=== PATIENT | female | born 1935 | race American Indian/Alaskan Native ===

== ENCOUNTER 2022-01-07 15:11 | Emergency (ER) | payer MEDICARE, OTHER ==
[2022-01-07] MEDS ORDERED: IPRATROPIUM 0.02% NEBU 2.5 ML IH ONE (16:29)
[2022-01-07] MEDS ORDERED: ALBUTEROL 2.5 MG/3 ML NEBU IH ONE (16:29)
[2022-01-07] MEDS ORDERED: predniSONE 20 MG TAB PO ONE (16:29)
--- NOTE | 2022-01-07 16:33 | Emergency Department Report ---
ED Shortness of Breath HPI - General Chief Complaint: Dyspnea/Respdistress Stated Complaint: DERRELL Time Seen by Provider: 01/07/22 16:26 Source: EMS Mode of arrival: Stretcher Limitations: No Limitations - History of Present Illness Initial Comments: Chief complaint: Difficulty breathing HPI: This is an 86-year-old female with a history of reactive airway disease and hypertension who presents with shortness of breath and wheezing. Patient was evaluated at urgent care clinic. EMS was called to the clinic for evaluation and treatment. Patient had shortness of breath and wheezing according to ore storage drier. She was breathing 30 breaths/min. She was treated with albuterol and Atrovent. Patient has used prednisone in the past for wheezing. She has had wheezing in the past. She was not officially diagnosed with asthma. Her primary care physician is located in [facility]. She is currently staying with her daughter here in [place]. Complaint: shortness of breath, "asthma attack" -: Gradual, days(s) (Symptoms occurred yesterday worsened this afternoon) Severity: moderate Consistency: other (Improving) Improves With: bronchodilators Worsens With: exertion Known History Of: asthma (History of wheezing) Associated Symptoms: denies other symptoms - Related Data Previous Rx's Medication Instructions Recorded Last Taken Type predniSONE [Deltasone] 2 tab PO QDAY 3 Days #6 tab 01/07/22 Unknown Rx Allergies Allergy/AdvReac Type Severity Reaction Status Date / Time No Known Allergies Allergy Verified 01/07/22 15:20 ED Review of Systems ROS: Stated complaint: DERRELL Other details as noted in HPI Comment: All other systems reviewed and negative Constitutional: denies: chills, fever, malaise Respiratory: shortness of breath, wheezing. denies: cough Cardiovascular: denies: chest pain Gastrointestinal: denies: abdominal pain, nausea, vomiting Skin: denies: rash, lesions ED Past Medical Hx - Past Medical History Previous Medical History?: Yes Hx Hypertension: Yes Hx Asthma: Yes (History of wheezing) - Surgical History Past Surgical History?: No - Family History Family history: other (Noncontributory to this presentation) - Social History Smoking Status: Never Smoker Substance Use Type: None - Medications Home Medications: Home Medications Medication Instructions Recorded Confirmed Last Taken Type predniSONE [Deltasone] 2 tab PO QDAY 3 Days #6 tab 01/07/22 Unknown Rx ED Physical Exam - General Limitations: No Limitations General appearance: alert, in no apparent distress - Head Head exam: Present: atraumatic, normocephalic - Eye Eye exam: Present: normal appearance - ENT ENT exam: Present: mucous membranes moist - Neck Neck exam: Present: normal inspection, full ROM - Respiratory Respiratory exam: Present: respiratory distress, wheezes, prolonged expiratory, other (Expiratory wheezing). Absent: rales, rhonchi, accessory muscle use - Cardiovascular Cardiovascular Exam: Present: regular rate, normal rhythm, normal heart sounds. Absent: systolic murmur, diastolic murmur, rubs, gallop - GI/Abdominal GI/Abdominal exam: Present: soft, normal bowel sounds. Absent: distended, tenderness, guarding, rebound - Extremities Exam Extremities exam: Present: normal inspection - Neurological Exam Neurological exam: Present: alert, oriented X3 - Psychiatric Psychiatric exam: Present: normal affect, normal mood - Skin Skin exam: Present: warm, dry, intact, normal color. Absent: rash ED Course Vital Signs 01/07/22 01/07/22 15:17 17:16 Temperature 98.7 F Pulse Rate 99 H Pulse Rate [ 91 H Bilateral] Respiratory 16 Rate Respiratory 24 Rate [Bilateral ] Blood Pressure 177/90 [Right] O2 Sat by Pulse 98 Oximetry ED Medical Decision Making - Radiology Data Radiology results: report reviewed Patient Name: PHIL STORY Gender: Female Date of : 1935 Home Phone: Referring Provider: NHI ELIZONDO Organization: [facility] Accession Number: [id number] Requested Date: January 07, 2022 16:33 Report Status: Final Requested Procedure: 1 Procedure Description: XR chest 1V ap Modality: XR Findings Reporting MD: Aly Rahman Dictation Time: January 07, 2022 15:54 Group Program Manager: Not available Electronic Engineering Technician Date: CHEST 1 VIEW 01/07/2022 3:51 PM INDICATION / CLINICAL INFORMATION: Shortness of breath wheezing. COMPARISON: None available. FINDINGS: SUPPORT DEVICES: None. HEART / MEDIASTINUM: Heart is upper normal size. Thoracic aorta is tortuous. LUNGS / PLEURA: No significant pulmonary or pleural abnormality. No pneumothorax. ADDITIONAL FINDINGS: No significant additional findings. IMPRESSION: 1. No acute findings. Signer Name: Aly Rahman MD Signed: 01/07/2022 3:54 PM Workstation Name: [id number] - Medical Decision Making Reactive airway disease acute exacerbation patient improved with albuterol 5 mg Atrovent 1 mg and prednisone emergency department. 3-day burst prednisone prescribed. Critical care attestation.: If time is entered above; I have spent that time in minutes in the direct care of this critically ill patient, excluding procedure time. ED Disposition Clinical Impression: Reactive airway disease Disposition: HOME / SELF CARE / HOMELESS Is pt being admited?: No Does the pt Need Aspirin: No Condition: Stable Instructions: Asthma Attack Prescriptions: predniSONE [Deltasone] 2 tab PO QDAY 3 Days #6 tab Referrals: KELLI FLOR MD [Staff Physician] - as needed
--- NOTE | 2022-01-07 16:58 | XRay Report ---
CHEST 1 VIEW 01/07/2022 3:51 PM INDICATION / CLINICAL INFORMATION: Shortness of breath wheezing. COMPARISON: None available. FINDINGS: SUPPORT DEVICES: None. HEART / MEDIASTINUM: Heart is upper normal size. Thoracic aorta is tortuous. LUNGS / PLEURA: No significant pulmonary or pleural abnormality. No pneumothorax. ADDITIONAL FINDINGS: No significant additional findings. IMPRESSION: 1. No acute findings. Signer Name: Aly Rahman MD Signed: 01/07/2022 4:54 PM Workstation Name: [facility]
[2022-01-07 19:04] VITALS: BP 168/84
== END 2022-01-07 19:08 | disposition home or self-care (01) ==
LOC: ED 15:11
DX: J45.909 Unspecified asthma, uncomplicated (principal); I10 Essential (primary) hypertension
CPT/HCPCS: 71045; 94644; 99284